=== PATIENT | male | born 1955 | race Caucasian/White ===

== ENCOUNTER → 2020-05-03 10:41 | Outpatient (BNVA) | payer MEDICARE, MEDICAID, SELFPAY | PROVIDERS: Visit Provider Internal Medicine Gastroenterology | DX: R68.81 Early satiety (principal); R10.12 Left upper quadrant pain | CPT/HCPCS: 99212 ==

== ENCOUNTER → 2020-06-02 07:29 | Outpatient (REF) | payer MEDICARE, MEDICAID, SELFPAY ==
--- NOTE | 2020-06-02 | NM_ITS ---
EXAMINATION: RADIONUCLIDE SOLID FOOD GASTRIC EMPTYING 4-HOUR STUDY CLINICAL INFORMATION: Early satiety. COMPARISON: No previous gastric emptying study is available for comparison. TECHNIQUE: A standard meal consisting of 4 oz of Egg Beaters brand tagged with 980 microcuries Tc-99m Sulfur Colloid, 8 oz water and 2 slices of toast with jelly was administered orally to the patient. Images were obtained using a dual head gamma camera in the anterior and posterior projections over of the stomach immediately post ingestion and at hourly intervals up to 3 hours post ingestion. Images were not obtained at 4 hours due to the minimal retention at 3 hours. The anterior and posterior counts at each time interval were averaged using the geometric mean and expressed as percentage of the immediate post ingestion counts. FINDINGS: There is good visualization of activity in the stomach immediately post ingestion. As the study progresses, there is good clearance of activity from the stomach and visualization of progressively increasing small bowel activity. By the end of the study, there is almost no retention noted in the stomach. Retention in the stomach at each time interval was: 1 hour 62% (normal 37%-90%) 2 hours 8% (normal 30%-60%) 3 hours 1% 4 hours (Not Obtained) (normal 0%-10%) NM/NM gastric emptying study IMPRESSION: Normal solid food gastric emptying study.
== END ==
LOC: HO.NUCMED 07:29
PROVIDERS: Visit Provider Internal Medicine Gastroenterology
DX: R68.81 Early satiety (principal)
CPT/HCPCS: 78264; A9541

== ENCOUNTER → 2020-09-06 09:52 | Outpatient (BNVA) | payer MEDICARE, MEDICAID, SELFPAY | PROVIDERS: Visit Provider Internal Medicine Gastroenterology | DX: R68.81 Early satiety (principal) | CPT/HCPCS: Q3014 ==

== ENCOUNTER → 2021-11-17 09:24 | Outpatient (BNVA) | payer MEDICARE, MEDICAID, SELFPAY | PROVIDERS: Visit Provider Internal Medicine Gastroenterology | DX: K31.A11 Gastric intestinal metaplasia without dysplasia, involving the antrum (principal) | CPT/HCPCS: 99212 ==

== ENCOUNTER 2022-01-08 08:16 | Outpatient (REF) | payer MEDICARE, MEDICAID, SELFPAY ==
[2022-01-09 14:13] LABS: H Pylori Breath Test Negative (Negative)
== END 2022-01-08 08:17 | disposition home or self-care (01) ==
LOC: HO.LNP 08:16
PROVIDERS: Visit Provider Internal Medicine Gastroenterology
DX: A04.8 Other specified bacterial intestinal infections (principal)
CPT/HCPCS: 83013; 99211

== ENCOUNTER → 2023-01-04 11:36 | Outpatient (BNVA) | payer MEDICARE, MEDICAID, SELFPAY | PROVIDERS: Visit Provider Internal Medicine Gastroenterology | DX: K31.A11 Gastric intestinal metaplasia without dysplasia, involving the antrum (principal); K63.5 Polyp of colon | CPT/HCPCS: 99212 ==

== ENCOUNTER 2023-06-05 10:44 | Day surgery (SDC) | payer MEDICARE, SELFPAY ==
[2023-06-03 16:00] VITALS: BMI 27.1
--- NOTE | 2023-06-04 12:16 | HO.ANESPROP2 ---
Documented by User: Jennifer Thomas NP 06/04/23 12:17 HPI - Anesthesia Eval Consult details Narrative: 67yo M for Upper Endoscopy and Colonoscopy [facility] Active Problems Active Problems: All Active Problems (Updated 06/03/23 @ 16:02 by Kimberly Lopez, URIEL) Colon polyps (Acute) Intestinal metaplasia of antrum of stomach without dysplasia (Acute) Early satiety (Acute) Past Medical History Medical History Elevated cholesterol Family History Family History Father No problems noted. Mother No problems noted. Surgical History Surgical History Hx of endoscopy History of colonoscopy Social History Social History Household Members: Spouse Alcohol intake: current Alcohol intake frequency: 0-2 drinks per day Alcohol type: wine Advance Directives: No Advance Directives Information Provided: Yes Meds Allergies Allergy/AdvReac Type Severity Reaction Status Date / Time No Known Allergies Allergy Verified 06/05/23 11:37 Home Medications Medication Instructions Recorded Confirmed Last Taken Type cholecalciferol (vitamin D3) 25 25 mcg PO DAILY 11/17/21 06/05/23 Unknown History mcg (1,000 unit) capsule ripzvegwlost-ire-rqaqz acid-vit 1 tab PO DAILY 11/17/21 06/05/23 Unknown History K-lycop 400 mcg-20 mcg-370 mcg tablet (Men's 50 Plus Multivitamin) rosuvastatin 5 mg tablet 5 mg PO DAILY 11/17/21 06/05/23 Unknown History Exam Height,Weight and Vital Signs: Height 5 ft 6 in Weight 76.204 kg Assessment and Plan Assessment Anesthesia Assessment: Chart Reviewed Documented by User: Kristen Sneed MD 06/05/23 12:21 PMFSH Active Problems Active Problems: All Active Problems (Updated 06/04/23 @ 11:50 by Kristen Sneed MD) Colon polyps (Acute) Intestinal metaplasia of antrum of stomach without dysplasia (Acute) Early satiety (Acute) Past Medical History Medical History Elevated cholesterol Family History Family History Father No problems noted. Mother No problems noted. Family history of problems with anesthesia: No Surgical History Surgical History Hx of endoscopy History of colonoscopy History of Problems with Anesthesia: No Social History Social History Household Members: Spouse Alcohol intake: current Alcohol intake frequency: 0-2 drinks per day Alcohol type: wine Advance Directives: No Advance Directives Information Provided: Yes Meds Allergies Allergy/AdvReac Type Severity Reaction Status Date / Time No Known Allergies Allergy Verified 06/05/23 11:37 Home Medications Medication Instructions Recorded Confirmed Last Taken Type cholecalciferol (vitamin D3) 25 25 mcg PO DAILY 11/17/21 06/05/23 Unknown History mcg (1,000 unit) capsule pjjcpauowpmx-tfc-eflrl acid-vit 1 tab PO DAILY 11/17/21 06/05/23 Unknown History K-lycop 400 mcg-20 mcg-370 mcg tablet (Men's 50 Plus Multivitamin) rosuvastatin 5 mg tablet 5 mg PO DAILY 11/17/21 06/05/23 Unknown History Exam Height,Weight and Vital Signs: Height 5 ft 6 in Weight 76.204 kg Vital Signs Temp Pulse Resp BP Pulse Ox O2 Del Method 06/05/23 11:52 98.4 F 49 L 15 133/75 98 Room Air Airway Mallampati Class: II TM Dist: >3cm Neck ROM: Full Loose/Missing/Broken Teeth: Yes (Missing 1 tooth top Right back. Denies broken or loose teeth) Heart: RRR Lungs: CTAB Assessment and Plan Assessment Anesthesia Assessment: Anesthesia Plan Discussed Final Anesthetic Review Family History of Problems with Anesthesia: No History of Problems with Anesthesia: No NPO: Yes ASA Class: II Final Preanesthetic Review: No Changes in Pt Med Stat, Meds/Allgs Chart Reviewed, Consent Obtained/Reviewed and Anes Risks/Benef Reviewed Patient Risk: Low Procedure Risk: Low Assessment/Block/Sedation in SS: Assess/Block/Sedation-SS Anesthetic Plan Anesthetic Plan: MAC: Disposition: Standard PACU
--- OUTSIDE RECORDS SUMMARY | 2023-06-05 10:47 | XMS_ITS | Continuity of Care Document ---
Author Name Unknown Organization [facility] Adult Address [address] [place] [address]- Care Team Providers Care Sand System Operator Name Role Phone Chris Ballard MD Primary Care Physician [phone] Encounter [facility] [place] Date(s): 07/07/20 - 08/06/20 [facility] Adult [address] [place] [address]- Allergies, Adverse Reactions, Alerts Substance Reaction Severity Status NKA Active Immunizations Given and Recorded Vaccine Date Status Refusal Reason zoster vaccine, inactivated 09/30/17 Given tetanus/diphtheria/pertussis, acel(Tdap) 09/20/16 Given influenza virus vaccine, inactivated 09/15/15 Give n influenza virus vaccine, inactivated 05/31/14 Give n tetanus-diphtheria toxoids (Td) 1 08/09/06 Given 1Admin Note: [facility] Medications fluticasone 50 mcg/inh nasal spray 2 sprays, Nares, Both, Daily in AM, # 16 Gm, 3 Refills, Maintenance, 09/25/19 13:05:00 EDT, [place], [facility] #[id number], 2 sprays Nares, Both Daily in AM,x10 days, 168, cm, 10/20/18 11:25:00 EDT, Height Start Date: 09/25/19 Stop Date: 11/04/19 Status: Ordered gabapentin 300 mg oral capsule 1, capsule, By Mouth, 3 times a day, # 270 capsule, Refills 3, Tot. Refills 3, Maintenance, 02/05/20 15:13:00 EDT, Route to Pharmacy Electronically, [facility]/pharmacy #[id number], 168, cm, 11/18/19 8:50:00 EDT,Height Start Date: 02/05/20 Stop Date: 01/30/21 Status: Ordered Multivitamin Tablet 1 tablet, By Mouth, Daily, # 30 tablet, 0 Refills, Maintenance, 09/13/14 7:57:07, Tablet Start Date: 09/13/14 Status: Ordered omeprazole 20 mg oral delayed release tablet 1 tablet = 20 mg, By Mouth, Daily, # 90 tablet, 0 Refills, Maintenance, 07/07/20 14:23:00 EST, [id number], 168, cm, 11/18/19 8:50:00 EDT, Height Start Date: 07/07/20 Status: Ordered rosuvastatin 5 mg oral tablet 1 tablet = 5 mg, By Mouth, Daily, # 90 tablet, 4 Refills, Soft Stop, 11/05/19 11:16:00 EDT, [id number], 168, cm, 11/04/19 10:20:00 EDT, Height Start Date: 11/05/19 Status: Ordered traMADol 50 mg oral tablet 1 tablet = 50 mg, By Mouth, Daily, # 30 tablet, 5 Refills, Maintenance, 06/03/20 11:37:00 EST, Tablet, [id number], 168, cm, 11/18/19 8:50:00 EDT, Height Start Date: 06/03/20 Stop Date: 11/30/20 Status: Ordered Vitamin C Tablet 1 tablet, By Mouth, Daily, # 30 tablet, 0 Refills, Maintenance, 09/13/14 7:57:22, Tablet Start Date: 09/13/14 Status: Ordered Problem List Condition Effective Dates Status Health Status Inform ant Anal fissure(Confirmed) Active Chronic low back pain(Confirmed) Active Esophageal reflux (GERD)(Confirmed) Active 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
--- OUTSIDE RECORDS SUMMARY | 2023-06-05 10:47 | XMS_ITS | Continuity of Care Document ---
Author Name Unknown Organization [facility] Adult Address [address] [place] [address]- Care Team Providers Care Sat Tutor Name Role Phone Chris Ballard MD Primary Care Physician [place] [facility] [place]14/20 [facility] [address] [place] [address]- Encounter Diagnosis Medicare annual wellness visit, subsequent(Discharge Diagnosis) - 11/07/20 Attending Physician: Chris Ballard MD Allergies, Adverse Reactions, Alerts Substance Reaction Severity Status NKA Active Immunizations Given and Recorded Vaccine Date Status Refusal Reason zoster vaccine, inactivated 12/28/17 Recorded zoster vaccine, inactivated 09/30/17 Given tetanus/diphtheria/pertussis, acel(Tdap) 09/20/16 Given influenza virus vaccine, inactivated 09/15/15 Give n influenza virus vaccine, inactivated 05/31/14 Give n tetanus-diphtheria toxoids (Td) 1 08/09/06 Given 1Admin Note: [facility] Medications fluticasone 50 mcg/inh nasal spray 2 sprays, Nares, Both, Daily in AM, # 16 Gm, 3 Refills, Maintenance, 09/25/19 13:05:00 EDT, [place], [facility] #[id number], 2 sprays Nares, Both Daily in AM,x10 days, 168, cm, 10/20/18 11:25:00 EDT, Height Start Date: 09/25/19 Stop Date: 11/04/19 Status: Ordered Multivitamin Tablet 1 tablet, By Mouth, Daily, # 30 tablet, 0 Refills, Maintenance, 09/13/14 7:57:07, Tablet Start Date: 09/13/14 Status: Ordered omeprazole 20 mg oral delayed release tablet 1 tablet = 20 mg, By Mouth, Daily, # 90 tablet, 0 Refills, Maintenance, 08/11/20 10:09:00 [facility], [facility] #[id number], 168, cm, 11/18/19 8:50:00 EDT, Height Start Date: 08/11/20 Status: Ordered rosuvastatin 5 mg oral tablet 1 tablet = 5 mg, By Mouth, Daily, # 90 tablet, 1 Refills, Soft Stop, 11/05/20 9:01:00 EDT, [facility]/pharmacy #[id number], 168, cm, 11/18/19 8:50:00 EDT, Height Start Date: 11/05/20 Status: Ordered Tylenol Arthritis Caplet = 1,300 mg, By Mouth, Every 8 hours, 0 Refills, Maintenance, 11/07/20 8:16:00 EDT, Partial fill upon patient request if the prescription is for a schedule II opioid drug. 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 Hyperlipidemia(Confirmed) Active Rosacea(Confirmed) Active Diagnosis Diagnosis Type Effective Dates Health Status Clinical Service Informant Medicare annual wellness visit, subsequent Discharge Diagnosis 11/07/20 Vital Signs Most recent to oldest [Reference Range]: 1 Height 168.5 cm (11/07/20 8:13 AM) Weight 71.7 kg (11/07/20 8:13 AM) Oxygen Saturation [94-100 %] 98 % (11/07/20 8:13 AM) Pulse Rate [55-90 bpm] 50 bpm *L* (11/07/20 8:13 AM) Body Mass Index [18.5-24.99] 25.25 *H* (11/07/20 8:13 AM) Blood Pressure [90-138/55-84 mm Hg] 122/ 68mm Hg (11/07/20 8:13 AM) Blood pressure sites Arm, right (11/07/20 8:13 AM) Weight Obtained Via Standing scale (11/07/20 8:13 AM) Social History Social History Type Response Smoking Status Former smoker; Type: Cigarettes; Other: Quit at age 22; entered on: 09/15/15 Sex
--- OUTSIDE RECORDS SUMMARY | 2023-06-05 10:47 | XMS_ITS | Continuity of Care Document ---
Author Name Unknown Organization [facility] Adult Address [address] [place] [address]- Care Team Providers Care Solvent Process Extractor Operator Name Role Phone Elio NAVARRETE, Chris Smyth Primary Care Physician [phone] Encounter [facility] [place] Date(s): 01/02/23 - 02/01/23 [facility] [address] [place] [address]- Allergies, Adverse Reactions, Alerts No Known Allergies Immunizations Given and Recorded Vaccine Date Status Refusal Reason pneumococcal 20-valent conjugate vaccine 11/16/22 Given influenza virus vaccine, inactivated 05/18/22 Ruy rded influenza virus vaccine, inactivated 09/15/15 Give n influenza virus vaccine, inactivated 05/31/14 Give n [id number] 12y+ bivalent booster vax 05/16/22 Recorded zoster vaccine, inactivated 12/28/17 Recorded zoster vaccine, inactivated 09/30/17 Given tetanus/diphtheria/pertussis, acel(Tdap) 09/20/16 Given tetanus-diphtheria toxoids (Td) 1 08/09/06 Given 1Admin Note: [facility] Medications Multivitamin Tablet 1 tablet, By Mouth, Daily, # 30 tablet, 0 Refills, Maintenance, 09/13/14 7:57:07, Tablet Start Date: 09/13/14 Status: Ordered rosuvastatin 5 mg oral tablet 1 tablet = 5 mg, By Mouth, Daily, # 90 tablet, 3 Refills, Soft Stop, 01/07/23 9:27:00 EDT, [facility] #[id number], 168.5, cm, 11/16/22 9:45:00 EDT, Height Start Date: 01/07/23 Status: Ordered Vitamin D3 1000 intl units oral capsule 1 capsule = 25 mcg, By Mouth, Daily, 0 Refills, Maintenance, 11/10/21 8:11:00 EDT, Partial fill upon patient request if the prescription is for a schedule II opioid drug. Start Date: 11/10/21 Status: Ordered Problem List Condition Confirmation Course Effective Dates Status H ealth Status Informant Anal fissure Confirmed Active Chronic low back pain Confirmed Active Esophageal reflux (GERD) Confirmed Active IFG (impaired fasting glucose) Confirmed Active Degenerative joint disease (DJD) of lumbar spine Confirmed Active Hyperlipidemia Confirmed Active Rosacea Confirmed Active Social History Social History Type Response Smoking Status Former smoker, quit more than 30 days ago; Tobacco use times per day: 1 pack every 3-5 days; Started at age: 18; Stopped at age: 22; entered on: 11/16/22 Sex Patient Care team information Care Team Personnel Name: Chris Ballard MD Position: S Physician - Primary Care Member Role: PCP Address: Address: [address] [place] [address]- Care Team Related Persons Name: HUGO VARGAS Address: [address] [place] [address] Name: GIANFRANCO BOWSER Address: home [address] [place] [address]
--- OUTSIDE RECORDS SUMMARY | 2023-06-05 10:47 | XMS_ITS | Continuity of Care Document ---
Author Name Unknown Organization [facility] Adult Address [address] [place] [address]- Care Team Providers Care Sample Case Porter Name Role Phone Chris Ballard MD Primary Care Physician [phone] [place] [facility] [place] 11/23/22 [facility] [address] [place] [address]- Encounter Diagnosis General medical exam(Discharge Diagnosis) - 11/16/22 Medicare annual wellness visit, subsequent(Discharge Diagnosis) - 11/16/22 IFG (impaired fasting glucose)(Discharge Diagnosis) - 11/16/22 Hyperlipidemia(Discharge Diagnosis) - 11/16/22 Chronic low back pain(Discharge Diagnosis) - 11/16/22 Attending Physician: Chris Ballard MD Allergies, Adverse Reactions, Alerts No Known Allergies Immunizations Given and Recorded Vaccine Date Status Refusal Reason pneumococcal 20-valent conjugate vaccine 11/16/22 Given influenza virus vaccine, inactivated 05/18/22 Ruy rded influenza virus vaccine, inactivated 09/15/15 Give n influenza virus vaccine, inactivated 05/31/14 Give n [id number] 12y+ bivalent booster vax 05/16/22 Recorded zoster vaccine, inactivated 12/28/17 Recorded zoster vaccine, inactivated 09/30/17 Given tetanus/diphtheria/pertussis, acel(Tdap) 09/20/16 Given tetanus-diphtheria toxoids (Td) 1 08/09/06 Given 1Admin Note: [facility] Multivitamin Tablet 1 tablet, By Mouth, Daily, # 30 tablet, 0 Refills, Maintenance, 09/13/14 7:57:07, Tablet Start Date: 09/13/14 Status: Ordered rosuvastatin 5 mg oral tablet 1 tablet = 5 mg, By Mouth, Daily, # 90 tablet, 1 Refills, Soft Stop, 01/26/22 13:32:00 EDT, [facility] #[id number], 168.5, cm, 11/10/21 7:54:00 EDT, Height Start Date: 01/26/22 Status: Ordered Vitamin D3 1000 intl units [...] Active Hyperlipidemia Confirmed Active Rosacea Confirmed Active Diagnosis Diagnosis Type Effective Dates Health Status Clinical Service Informant General medical exam Discharge Diagnosis 11/16/22 Hyperlipidemia Discharge Diagnosis 11/16/22 IFG (impaired fasting glucose) Discharge Diagnosis 11/16/22 Medicare annual wellness visit, subsequent Discharge Diagnosis 11/16/22 Chronic low back pain Discharge Diagnosis 11/16/22 Vital Signs Most recent to oldest [Reference Range]: 1 2 3 Height 168.5 cm (11/16/22 9:45 AM) 168.5 cm (11/16/22 9:24 AM) 168.5 cm (11/16/22 8:29 AM) Weight 73.1 kg (11/16/22 8:29 AM) Oxygen Saturation [94-100 %] 99 % (11/16/22 8:29 AM) Pulse Rate [55-90 bpm] 45 bpm *L* (11/16/22 8:29 AM) Body Mass Index [18.5-24.99 kg/m2] 25.75 kg/m2 *H* (11/16/22 8:29 AM) Blood Pressure [90-138/55-84 mm Hg] 134/77mm Hg (11/16/22 9:45 AM) 134/77mm Hg 1 (11/16/22 9:24 AM) 142/78mm Hg *H* (11/16/22 8:29 AM) Blood pressure sites Arm, left (11/16/22 9:45 AM) Arm, left (11/16/22 8:29 AM) 1Result Comment: Repeat BP in office after exam Social History Social History Type Response Smoking Status Former smoker, quit more than 30 days ago; Tobacco use times per day: 1 pack every 3-5 days; Started at age: 18; Stopped at age: 22; entered on: 11/16/22 Sex Note * Esha Pritchett [place]: PERFORM, SIGN, VERIFY Event Display: Patient Education/Instruction Authored Date: [id number] [facility] *[facility] Clinical Summary Name NAVDEEP BOWSER Age 67 Years 1955 PCP Elio NAVARRETE, Chris Smyth PCP Visit Date 11/16/2022 08:15:00 Patient Instructions Please go to lab today for blood work; Dr. Ballard will contact you with results Continue with your good diet and try to be as active as possible You will be contacted to schedule your colonoscopy since you are due You will be contacted about scheduling that aortic abdominal screening since you used to smoke in the past (this is routine) You had the Prevnar 20 vaccine today (for pneumonia) Physical in 1 year Additional Instructions: Scheduled Appointments?? Future Appointments ?No Future Appointments Scheduled Follow-Up Instructions ?? Diagnosis Encounter for general adult medical examination without abnormal findings; Impaired fasting glucose; Low back pain, unspecified; Encounter for general adult medical examination without abnormal findings; Hyperlipidemia, unspecified Medications: Please continue your medications until treatment is completed or stopped by your provider. Discuss any questions related to medications with your provider. Medications to Continue with No Changes These medications were not printed or sent to your pharmacy Cholecalciferol (Vitamin D3 1000 intl units oral capsule) 1 capsule Oral Daily. Next Dose: Multivitamin (Multivitamin Tablet) 1 tab(s) Oral Daily. Next Dose: Rosuvastatin (rosuvastatin 5 mg oral tablet) 1 tab(s) Oral Daily. Refills: 1. Next Dose: Allergy Info:?? NKA Medications Given This Visit Future Orders ?Lipid Panel? Order Date:11/16/22?- Complete on or after?11/16/22 ?PSA Screen? Order Date:11/16/22?- Complete on or after?11/16/22 Vital Signs Height 168.5 cm Weight 73.1 kg BMI 25.75 kg/m2 Blood Pressure 142 mm Hg/78 mm Hg Temperature Pulse Rate 45 bpm Respiratory Rate 02 Sat Mode of Delivery 99 %/ You can now view a summary of your hospital visit from the comfort of your home through a free online portal called [employer]. [employer] is a website that allows you to securely view your medical information including discharge summary, medications and follow-up visits. ??You can alsosend a secure electronic message to your doctor???s office to request appointments, renew medications or just ask a question. You can enroll at [email or web address] or register during your next office visit. Disclaimer:?? The information provided is of a general nature and is intended to be used in conjunction with the recommendations and advice of your health care practitioner. ??Every effort has been made to ensure that the information provided is accurate and complete at the time it is provided to you however, as your needs change, or, as new ??information becomes available, different or additional instructions may be required. If you have questions, please consult with your primary care provider or pharmacist, as appropriate. ??This information is not intended to serve as substitution for assessment and evaluation by a qualified health care provider. If you do not have a primary care provider, you may find a [facility] provider by calling [facility] Link at [phone]. For information about the plan of care including goals and instructions for your diagnosis, please see the patient education orders section of this document. Patient Education Materials?? The content of this educational material or handout may have been modified, supplemented, or adapted from its original content and format to support your individualized medical care. Patient Care team information Care Team Personnel Name: Elio NAVARRETE, Chris Smyth Position: S Physician - Primary Care Member Role: PCP Address: Address: [address] [place] [address]- Care Team Related Persons Name: HUGO VARGAS Address: home [address] [place] [address] Name: GIANFRANCO BOWSER Address: home [address] [place] [address]
--- OUTSIDE RECORDS SUMMARY | 2023-06-05 10:47 | XMS_ITS | Continuity of Care Document ---
Author Name Unknown Organization [facility] Adult Address [address] [place] [address]- Care Team Providers Care Hydropress Operator Name Role Phone Chris Ballard MD Primary Care Physician [phone] Encounter [facility] [place] Date(s): 11/18/19 - 12/18/19 [facility] [address] [place] [address]- [facility] Attending Physician: Admtr, Lorenzo Admitting Physician: AdmtrLorenzo Referring Physician: Admtr, Ar8 Allergies, Adverse Reactions, Alerts Substance Reaction Severity [...] Gm, 3 Refills, Maintenance, 09/25/19 13:05:00 EDT, [place], [facility] #[id number], 2 sprays Nares, Both Daily in AM,x10 days, 168, cm, 10/20/18 11:25:00 EDT, Height Start Date: 09/25/19 Stop Date: 11/04/19 Status: Ordered gabapentin 300 mg oral capsule 1, capsule, By Mouth, 3 times a day, # 90 capsule, Refills 11, Tot. Refills 11, Maintenance, 11/26/19 13:15:00 EDT, Route to Pharmacy Electronically, [facility]/pharmacy #[id number], 168, cm, 05/20/20 8:50:00 EDT, Height Start Date: 11/26/19 Stop Date: 11/20/20 Status: Ordered Multivitamin Tablet 1 tablet, By Mouth, Daily, # 30 tablet, 0 Refills, Maintenance, 09/13/14 7:57:07, Tablet Start Date: 09/13/14 Status: Ordered omeprazole 20 mg oral delayed release tablet 1 tablet = 20 mg, By Mouth, Daily, # 90 tablet, 4 Refills, Maintenance, 11/04/19 10:35:00 EDT, [facility] #[id number], 168, cm, 11/04/19 10:20:00 EDT, Height Start Date: 11/04/19 Stop Date: 05/02/20 Status: Ordered rosuvastatin 5 mg oral tablet 1 tablet = 5 mg, By Mouth, Daily, # 90 tablet, 4 Refills, Soft Stop, 11/05/19 11:16:00 EDT, [facility]/pharmacy #[id number], 168, cm, 11/04/19 10:20:00 EDT, Height Start Date: 11/05/19 Status: Ordered traMADol 50 mg oral tablet 1 tablet = 50 mg, By Mouth, Daily, # 30 tablet, 5 Refills, Maintenance, 11/26/19 13:27:00 EDT, Tablet, [facility]/pharmacy #[id number], 168, cm, 11/18/19 8:50:00 EDT, Height Start Date: 11/26/19 Stop Date: 05/24/20 Status: Ordered Vitamin C Tablet 1 tablet, [...]
--- OUTSIDE RECORDS SUMMARY | 2023-06-05 10:47 | XMS_ITS | Continuity of Care Document ---
Author Name Unknown Organization [facility] Adult Address [address] [place] [address]- Care Team Providers Care Hand I Cutter Name Role Phone Chris Ballard MD Primary Care Physician [place] [facility] [place]/15/20 - 07/15/20 [facility] Adult [address] [place] [address]- Allergies, Adverse Reactions, Alerts Substance Reaction Severity [...] Gm, 3 Refills, Maintenance, 09/25/19 13:05:00 EDT, [place], [facility] #[id number], 2 sprays Nares, Both Daily in AM,x10 days, 168, cm, 10/20/18 11:25:00 EDT, Height Start Date: 09/25/19 Stop Date: 11/04/19 Status: Ordered gabapentin 300 mg oral capsule 1, capsule, By Mouth, 3 times a day, # 270 capsule, Refills 3, Tot. Refills 3, Maintenance, 02/05/20 15:13:00 EDT, Route to Pharmacy Electronically, [facility]/pharmacy #[id number], 168, cm, 11/18/19 8:50:00 [...]
--- OUTSIDE RECORDS SUMMARY | 2023-06-05 10:47 | XMS_ITS | Continuity of Care Document ---
Author Name Unknown Organization [facility] Adult Address [address] [place] [address]- Care Team Providers Care Mercury Washer Name Role Phone Chris Ballard MD Primary Care Physician [phone] Encounter [facility] [place] Date(s): 11/16/22 - 12/16/22 [facility] Adult [address] [place] [address]- Allergies, Adverse Reactions, Alerts No Known Allergies Immunizations Given and Recorded Vaccine Date Status Refusal Reason pneumococcal 20-valent conjugate vaccine 11/16/22 Given influenza virus vaccine, inactivated 05/18/22 Ruy rded influenza virus vaccine, inactivated 09/15/15 Give n influenza virus vaccine, inactivated 05/31/14 Give n [id number] 12y+ bivalent booster vax 05/16/22 Recorded zoster [...] 1 Refills, Soft Stop, 01/26/22 13:32:00 EDT, [facility] #[id number], 168.5, cm, 11/10/21 7:54:00 EDT, Height Start [...] Team Personnel Name: Chris Ballard MD Position: [facility] Physician - Primary Care Member Role: PCP Address: Address: [address] [place] [address]- Care Team Related Persons Name: HUGO VARGAS Address: home [address] [place] [address] Name: GIANFRANCO BOWSER Address: home [address] [place] [address]
--- OUTSIDE RECORDS SUMMARY | 2023-06-05 10:47 | XMS_ITS | Continuity of Care Document ---
Author Name Unknown Organization [facility] Adult Address [address] [place] [address]- Care Team Providers Care Motorized Squad Commanding Officer Name Role Phone Chris Ballard MD Primary Care Physician [phone] [id number] Date(s): 09/18/19 - 09/28/19 [facility] Adult [address] [place] [address]- [facility] Attending Physician: Admniurka, Lorenzo Admitting Physician: AdmtrLorenzo Referring Physician: Admtr, [...] Gm, 3 Refills, Maintenance, 09/25/19 13:05:00 EDT, [place], [facility] #[id number], 2 sprays Nares, Both Daily in AM,x10 days, 168, cm, 10/20/18 11:25:00 EDT, Height Start Date: 09/25/19 Stop Date: 11/04/19 Status: Ordered gabapentin 300 mg oral capsule 1, capsule, By Mouth, 2 times a day, # 60 capsule, Refills 12, Tot. Refills 0, Maintenance, 08/26/19 16:41:00 EST, Route to Pharmacy Electronically, [facility] #[id number], 168, cm, 10/20/18 11:25:00 EDT, Height Start Date: 08/26/19 Status: Ordered Multivitamin Tablet 1 tablet, By Mouth, Daily, # 30 tablet, 0 Refills, Maintenance, 09/13/14 7:57:07, Tablet Start Date: 09/13/14 Status: Ordered omeprazole 20 mg oral delayed release tablet 1 tablet = 20 mg, By Mouth, Daily, # 30 tablet, 5 Refills, Maintenance, 08/26/19 14:41:00 EST, [facility] #[id number], 168, cm, 10/20/18 11:25:00 EDT, Height Start Date: 08/26/19 Stop Date: 02/22/20 Status: Ordered rosuvastatin 5 mg oral tablet See Instructions, # 30 tablet, Refills 5 Tot. Refills 5, TAKE 1 TABLET BY MOUTH DAILY AT BEDTIME, [facility] #[id number] Start Date: 04/07/19 Status: Ordered traMADol 50 mg oral tablet 1 tablet = 50 mg, By Mouth, 2 times a day, for 30 days, fax [phone] fill on or after 08/08/18, #60 tablet, 5 Refills, Acute 03/07/20 11:13:00 EDT, 09/09/19 11:13:00 EDT, [facility] #[id number], 168, cm, 10/20/18 11:25:00 EDT, Height Start Date: 09/09/19 Stop Date: 03/07/20 Status: Ordered Vitamin C Tablet 1 tablet, By Mouth, Daily, # 30 tablet, 0 Refills, Maintenance, 09/13/14 7:57:22, Tablet Start Date: 09/13/14 Status: Ordered Problem List Condition Effective Dates Status Health Status Inform ant Anal fissure(Confirmed) Active Chronic low back pain(Confirmed) Active Esophageal reflux (GERD)(Confirmed) Active 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
--- OUTSIDE RECORDS SUMMARY | 2023-06-05 10:47 | XMS_ITS | Continuity of Care Document ---
Author Name Unknown Organization [facility] Adult Address [address] [place] [address]- Care Team Providers Care Head Of It Name Role Phone Chris Ballard MD Primary Care Physician [id number] Date(s): 08/05/19 - 12/03/19 [facility] Adult [address] [place] [address]- [facility] Attending Physician: Chris Ballard MD Allergies, Adverse [...] Gm, 3 Refills, Maintenance, 09/25/19 13:05:00 EDT, [place], [facility] #[id number], 2 sprays Nares, Both Daily in AM,x10 days, 168, cm, 10/20/18 11:25:00 EDT, Height Start Date: 09/25/19 Stop Date: 11/04/19 Status: Ordered gabapentin 300 mg oral capsule 1, capsule, By Mouth, 3 times a day, # 90 capsule, Refills 11, Tot. Refills 11, Maintenance, 11/26/19 13:15:00 EDT, Route to Pharmacy Electronically, [facility]/pharmacy #[id number], 168, cm, 11/18/19 8:50:00 EDT, Height Start Date: 11/26/19 Stop Date: 11/20/20 Status: Ordered Multivitamin Tablet 1 tablet, By Mouth, Daily, # 30 tablet, 0 Refills, Maintenance, 09/13/14 7:57:07, Tablet Start Date: 09/13/14 Status: Ordered omeprazole 20 mg oral delayed release tablet 1 tablet = 20 mg, By Mouth, Daily, # 90 tablet, 4 Refills, Maintenance, 11/04/19 10:35:00 EDT, [facility] #[id number], 168, cm, 11/04/19 10:20:00 EDT, Height Start Date: 11/04/19 Stop Date: 05/02/20 Status: Ordered rosuvastatin 5 mg oral tablet 1 tablet = 5 mg, By Mouth, Daily, # 90 tablet, 4 Refills, Soft Stop, 11/05/19 11:16:00 EDT, [facility]/pharmacy #[id number], 168, cm, 11/04/19 10:20:00 EDT, Height Start Date: 11/05/19 Status: Ordered traMADol 50 mg oral tablet 1 tablet = 50 mg, By Mouth, Daily, # 30 tablet, 5 Refills, Maintenance, 11/26/19 13:27:00 EDT, Tablet, [facility]/pharmacy #[id number], 168, cm, 11/18/19 8:50:00 EDT, Height [...]
--- OUTSIDE RECORDS SUMMARY | 2023-06-05 10:47 | XMS_ITS | Continuity of Care Document ---
Author Name Unknown Organization [facility] Adult Address [address] [place] [address]- Care Team Providers Care Plug Cutter Name Role Phone Chris Ballard MD Primary Care Physician Encounter [facility] [place] Date(s): 11/07/20 - 12/07/20 [facility] Adult [address] [place] [address]- Allergies, Adverse Reactions, Alerts Substance Reaction Severity [...] Gm, 3 Refills, Maintenance, 09/25/19 13:05:00 EDT, [place], [facility] #[id number], 2 sprays Nares, Both Daily in AM,x10 [...] 90 tablet, 0 Refills, Maintenance, 08/11/20 10:09:00 EST, [facility] #[id number], 168, cm, 11/18/19 8:50:00 EDT, Height Start Date: 08/11/20 Status: Ordered rosuvastatin 5 mg oral tablet 1 tablet = 5 mg, By Mouth, Daily, # 90 tablet, 1 Refills, Soft Stop, 11/05/20 9:01:00 EDT, [facility]/pharmacy #[id number], 168, cm, 11/18/19 8:50:00 EDT, Height [...] lumbar spine(Confirmed) Active Hyperlipidemia(Confirmed) Active Rosacea(Confirmed) Active Social History Social History Type Response Smoking Status Former smoker; Type: Cigarettes; Other: Quit at age 22; entered on: 09/15/15 Sex
--- OUTSIDE RECORDS SUMMARY | 2023-06-05 10:47 | XMS_ITS | Continuity of Care Document ---
Author Name Unknown Organization [facility] Adult Address [address] [place] [address]- Care Team Providers Care District Court Administrator Name Role Phone Chrsi Ballard MD Primary Care Physician [place] [facility] [place] 11/17/22 - 12/17/22 [facility] Adult [address] [place] [address]- Allergies, Adverse Reactions, Alerts No Known Allergies Immunizations Given and Recorded Vaccine Date Status Refusal Reason pneumococcal 20-valent conjugate vaccine 11/16/22 Given influenza virus vaccine, inactivated 05/18/22 Ruy rded influenza virus vaccine, inactivated 09/15/15 Give n influenza virus vaccine, inactivated 05/31/14 Give n [id number] 12y+ bivalent booster vax 05/16/22 Recorded zoster [...] 1 Refills, Soft Stop, 01/26/22 13:32:00 EDT, [facility] #[id number], 168.5, cm, 11/10/21 7:54:00 EDT, Height Start [...] Team Personnel Name: Chris Ballard MD Position: [facility] Physician - Primary Care Member Role: PCP Address: Address: [address] [place] [address]- Care Team Related Persons Name: HUGO VARGAS Address: home [address] [place] [address] Name: GIANFRANCO BOWSER Address: home [address] [place] [address]
--- OUTSIDE RECORDS SUMMARY | 2023-06-05 10:47 | XMS_ITS | Continuity of Care Document ---
Author Name Unknown Organization [facility] Adult Address Unknown Care Team Providers Care Hand Crocheter Name Role Phone Elio NAVARRETE, Chris Smyth Primary Care Physician Encounter [facility] [place] Date(s): 11/11/21 - 12/11/21 [facility] Adult Allergies, Adverse Reactions, Alerts No Known Allergies [...] 09/13/14 Status: Ordered omeprazole 20 mg oral enteric coated capsule 1 capsule, By Mouth, Daily, # 90 capsule, 1 Refills, 07/27/21 10:18:00 EST, [facility] #[id number], 168.5, cm, 11/07/20 8:13:00 EDT, Height Start Date: 07/27/21 Status: Ordered rosuvastatin 5 mg oral tablet 1 tablet = 5 mg, By Mouth, Daily, # 90 tablet, 1 Refills, Soft Stop, 11/22/21 8:21:00 EDT, [facility] #[id number], 168.5, cm, 11/10/21 7:54:00 EDT, Height Start Date: 11/22/21 Status: Ordered Vitamin D3 1000 intl units oral capsule 1 capsule = 25 mcg, By Mouth, Daily, 0 Refills, Maintenance, 11/10/21 8:11:00 EDT, Partial fill upon patient request if the prescription is for a schedule II opioid drug. Start Date: 11/10/21 Status: Ordered Problem List Condition Effective Dates [...]
--- OUTSIDE RECORDS SUMMARY | 2023-06-05 10:47 | XMS_ITS | Continuity of Care Document ---
Author Name Unknown Organization [facility] Adult Address [address] [place] [address]- Care Team Providers Care Inclusion Special Education Teacher Name Role Phone Chris Ballard MD Primary Care Physician Encounter [facility] [place] Date(s): 09/18/19 - 09/25/19 [facility] Adult [address] [place] [address]- [facility] Attending Physician: Chris Ballard MD Allergies, Adverse [...] Gm, 3 Refills, Maintenance, 09/25/19 13:05:00 EDT, [place], [facility] #[id number], 2 sprays Nares, Both Daily in AM,x10 days, 168, cm, 10/20/18 11:25:00 EDT, Height Start Date: 09/25/19 Stop Date: 11/04/19 Status: Ordered gabapentin 300 mg oral capsule 1, capsule, By Mouth, 2 times a day, # 60 capsule, Refills 12, Tot. Refills 0, Maintenance, 08/26/19 16:41:00 EST, Route to Pharmacy Electronically, [facility] #[id number], 168, cm, 10/20/18 11:25:00 EDT, Height Start Date: 08/26/19 Status: Ordered Multivitamin Tablet 1 tablet, By Mouth, Daily, # 30 tablet, 0 Refills, Maintenance, 09/13/14 7:57:07, Tablet Start Date: 09/13/14 Status: Ordered omeprazole 20 mg oral delayed release tablet 1 tablet = 20 mg, By Mouth, Daily, # 30 tablet, 5 Refills, Maintenance, 08/26/19 14:41:00 EST, [facility] #[id number], 168, cm, 10/20/18 11:25:00 EDT, Height Start Date: 08/26/19 Stop Date: 02/22/20 Status: Ordered rosuvastatin 5 mg oral tablet See Instructions, # 30 tablet, Refills 5 Tot. Refills 5, TAKE 1 TABLET BY MOUTH DAILY AT BEDTIME, [facility] #[id number] Start Date: 04/07/19 Status: Ordered traMADol 50 mg oral tablet 1 tablet = 50 mg, By Mouth, 2 times a day, for 30 days, fax [phone] fill on or after 08/08/18, #60 tablet, 5 Refills, Acute 03/07/20 11:13:00 EDT, 09/09/19 11:13:00 EDT, [facility] #02529, 168, cm, 10/20/18 11:25:00 EDT, Height Start [...]
--- OUTSIDE RECORDS SUMMARY | 2023-06-05 10:47 | XMS_ITS | Continuity of Care Document ---
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/21 Screening for prostate cancer(Discharge Diagnosis) - 11/10/21 Abnormal glucose(Discharge Diagnosis) - 11/10/21 Lipoma(Discharge Diagnosis) - 11/10/21 Attending Physician: Chris Ballard MD Allergies, Adverse Reactions, Alerts No Known Allergies Immunizations Given and Recorded Vaccine Date Status Refusal Reason zoster vaccine, inactivated 12/28/17 Recorded zoster vaccine, inactivated 09/30/17 Given tetanus/diphtheria/pertussis, acel(Tdap) 09/20/16 Given influenza virus vaccine, inactivated 09/15/15 Give n influenza virus vaccine, inactivated 05/31/14 Give n tetanus-diphtheria toxoids (Td) 1 08/09/06 Given 1Admin Note: [facility] Multivitamin Tablet 1 tablet, By Mouth, Daily, # 30 tablet, 0 Refills, Maintenance, 09/13/14 7:57:07, Tablet Start Date: 09/13/14 Status: Ordered omeprazole 20 mg oral enteric coated capsule 1 capsule, By Mouth, Daily, # 90 capsule, 1 Refills, 07/27/21 10:18:00 EST, [facility] #[id number], 168.5, cm, 11/07/20 8:13:00 EDT, Height Start Date: 07/27/21 Status: Ordered rosuvastatin 5 mg oral tablet 1 tablet = 5 mg, By Mouth, Daily, # 90 tablet, 1 Refills, Soft Stop, 05/30/21 9:09:00 [place], [facility] #[id number], 168.5, cm, 11/07/20 8:13:00 EDT, Height Start Date: 05/30/21 Status: Ordered Vitamin D3 1000 intl units [...] Medicare annual wellness visit, subsequent Discharge Diagnosis 11/10/21 Chronic low back pain Discharge Diagnosis 11/10/21 Hyperlipidemia Discharge Diagnosis 11/10/21 Pseudomonas aeruginosa colonization Discharge Diagnosis 11/10/21 Screening for prostate cancer Discharge Diagnosis 11/10/21 Abnormal glucose Discharge Diagnosis 11/10/21 Lipoma Discharge Diagnosis 11/10/21 Vital Signs Most recent to oldest [Reference Range]: 1 Height 168.5 cm (11/10/21 7:54 AM) Weight 72.8 kg (11/10/21 7:54 AM) Oxygen Saturation [94-100 %] 98 % (11/10/21 7:54 AM) Pulse Rate [55-90 bpm] 57 bpm (11/10/21 7:54 AM) Body Mass Index [18.5-24.99] 25.64 *H* (11/10/21 7:54 AM) Blood Pressure [90-138/55-84 mm Hg] 110/ 70mm Hg (11/10/21 7:54 AM) Blood pressure sites Arm, left (11/10/21 7:54 AM) Social History Social History Type Response Smoking Status Former smoker; Type: Cigarettes; Other: Quit at age 22; entered on: 09/15/15 Sex
--- OUTSIDE RECORDS SUMMARY | 2023-06-05 10:47 | XMS_ITS | Continuity of Care Document ---
Author Name Unknown Organization [facility] Adult Address [address] [place] [address]- Care Team Providers Care Tuber Machine Operator Helper Name Role Phone Chris Ballard MD Primary Care Physician Encounter [facility] [place] Date(s): 08/11/20 - 09/10/20 [facility] Adult [address] [place] [address]- Allergies, Adverse Reactions, Alerts Substance Reaction Severity [...] Gm, 3 Refills, Maintenance, 09/25/19 13:05:00 EDT, [place], [facility] #[id number], 2 sprays Nares, Both Daily in AM,x10 days, 168, cm, 10/20/18 11:25:00 EDT, Height Start Date: 09/25/19 Stop Date: 11/04/19 Status: Ordered gabapentin 300 mg oral capsule 1, capsule, By Mouth, 3 times a day, # 270 capsule, Refills 3, Tot. Refills 3, Maintenance, 02/05/20 15:13:00 EDT, Route to Pharmacy Electronically, [facility]/pharmacy #[id number], 168, cm, 11/18/19 8:50:00 EDT,Height Start Date: 02/05/20 Stop Date: 01/30/21 Status: Ordered Multivitamin Tablet 1 tablet, By Mouth, Daily, # 30 tablet, 0 Refills, Maintenance, 09/13/14 7:57:07, Tablet Start Date: 09/13/14 Status: Ordered omeprazole 20 mg oral delayed release tablet 1 tablet = 20 mg, By Mouth, Daily, # 90 tablet, 0 Refills, Maintenance, 08/11/20 10:09:00 EST, [facility] #[id number], 168, cm, 11/18/19 8:50:00 EDT, Height Start Date: 08/11/20 Status: Ordered rosuvastatin 5 mg oral tablet 1 tablet = 5 mg, By Mouth, Daily, # 90 tablet, 4 Refills, Soft Stop, 11/05/19 11:16:00 EDT, [facility]/pharmacy #[id number], 168, cm, 11/04/19 10:20:00 EDT, Height Start Date: 11/05/19 Status: Ordered traMADol 50 mg oral tablet 1 tablet = 50 mg, By Mouth, Daily, # 30 tablet, 5 Refills, Maintenance, 06/03/20 11:37:00 EST, Tablet, [facility] #[id number], 168, cm, 11/18/19 8:50:00 EDT, Height [...]
--- OUTSIDE RECORDS SUMMARY | 2023-06-05 10:47 | XMS_ITS | Continuity of Care Document ---
Author Name Unknown Organization [facility] Adult Address [address] [place] [address]- Care Team Providers Care Travel Nurse Name Role Phone Chris Ballard MD Primary Care Physician [place] [facility] [place]s): 06/02/20 - 07/02/20 [facility] Adult [address] [place] [address]- Allergies, Adverse Reactions, Alerts Substance Reaction Severity [...] Gm, 3 Refills, Maintenance, 09/25/19 13:05:00 EDT, [place], [email or web address] #[id number], 2 sprays Nares, Both Daily in AM,x10 days, 168, cm, 10/20/18 11:25:00 EDT, Height Start Date: 09/25/19 Stop Date: 11/04/19 Status: Ordered gabapentin 300 mg oral capsule 1, capsule, By Mouth, 3 times a day, # 270 capsule, Refills 3, Tot. Refills 3, Maintenance, 02/05/20 15:13:00 EDT, Route to Pharmacy Electronically, [facility]/pharmacy #[id number], 168, cm, 11/18/19 8:50:00 EDT,Height Start Date: 02/05/20 Stop Date: 01/30/21 Status: Ordered Multivitamin Tablet 1 tablet, By Mouth, Daily, # 30 tablet, 0 Refills, Maintenance, 09/13/14 7:57:07, Tablet Start Date: 09/13/14 Status: Ordered omeprazole 20 mg oral delayed release tablet 1 tablet = 20 mg, By Mouth, Daily, # 90 tablet, 4 Refills, Maintenance, 11/04/19 10:35:00 EDT, [facility] #[id number], 168, cm, 11/04/19 10:20:00 EDT, Height Start Date: 11/04/19 Stop Date: 05/02/20 Status: Ordered rosuvastatin 5 mg oral tablet 1 tablet = 5 mg, By Mouth, Daily, # 90 tablet, 4 Refills, Soft Stop, 11/05/19 11:16:00 EDT, [facility]/pharmacy #[id number], 168, cm, 11/04/19 10:20:00 EDT, Height Start Date: 11/05/19 Status: Ordered traMADol 50 mg oral tablet 1 tablet = 50 mg, By Mouth, Daily, # 30 tablet, 5 Refills, Maintenance, 06/03/20 11:37:00 EST, Tablet, [facility]/pharmacy #[id number], 168, cm, 11/18/19 8:50:00 [...]
--- OUTSIDE RECORDS SUMMARY | 2023-06-05 10:47 | XMS_ITS | Continuity of Care Document ---
Author Name Unknown Organization [facility] Adult Address [address] [place] [address]- Care Team Providers Care Book Jogger Name Role Phone Chris Ballard MD Primary Care Physician [phone] [id number] - 11/11/19 [facility] [address] [place] [address]- [facility] Encounter Diagnosis Esophageal reflux (GERD)(Discharge Diagnosis) - 11/04/19 Prediabetes(Discharge Diagnosis) - 11/04/19 Chronic low back pain(Discharge Diagnosis) - 11/04/19 Rosacea(Discharge Diagnosis) - 11/04/19 Medicare annual wellness visit, subsequent(Discharge Diagnosis) - 11/04/19 Attending Physician: Chris Ballard MD Allergies, Adverse [...] Gm, 3 Refills, Maintenance, 09/25/19 13:05:00 EDT, [place], [facility] #[id number], 2 sprays Nares, Both Daily in AM,x10 days, 168, cm, 10/20/18 11:25:00 EDT, Height Start Date: 09/25/19 Stop Date: 11/04/19 Status: Ordered gabapentin 300 mg oral capsule 1, capsule, By Mouth, 2 times a day, # 60 capsule, Refills 12, Tot. Refills 0, Maintenance, 08/26/19 16:41:00 EST, Route to Pharmacy Electronically, [email or web address] #[id number], 168, cm, 10/20/18 11:25:00 EDT, Height Start Date: 08/26/19 Status: Ordered Multivitamin Tablet 1 tablet, By Mouth, Daily, # 30 tablet, 0 Refills, Maintenance, 09/13/14 7:57:07, Tablet Start Date: 09/13/14 Status: Ordered omeprazole 20 mg oral delayed release tablet 1 tablet = 20 mg, By Mouth, Daily, # 90 tablet, 4 Refills, Maintenance, 11/04/19 10:35:00 EDT, [email or web address] #[id number], 168, cm, 11/04/19 10:20:00 EDT, Height Start Date: 11/04/19 Stop Date: 05/02/20 Status: Ordered rosuvastatin 5 mg oral tablet 1 tablet = 5 mg, By Mouth, Daily, # 90 tablet, 4 Refills, Soft Stop, 11/05/19 11:16:00 EDT, [facility]/pharmacy #[id number], 168, cm, 11/04/19 10:20:00 EDT, Height Start Date: 11/05/19 Status: Ordered traMADol 50 mg oral tablet 1 tablet = 50 mg, By Mouth, 2 times a day, for 30 days, fax [phone] fill on or after 08/08/18, #60 tablet, 5 Refills, Acute 03/07/20 11:13:00 EDT, 09/09/19 11:13:00 EDT, [email or web address] #[id number], 168, cm, 10/20/18 11:25:00 EDT, Height Start [...] Active Hyperlipidemia(Confirmed) Active Prediabetes(Confirmed) Active Rosacea(Confirmed) Active Diagnosis Diagnosis Type Effective Dates Health Status Clinical Service Informant Esophageal reflux (GERD) Discharge Diagnosis 11/04/19 Prediabetes Discharge Diagnosis 11/04/19 Chronic low back pain Discharge Diagnosis 11/04/19 Rosacea Discharge Diagnosis 11/04/19 Medicare annual wellness visit, subsequent Discharge Diagnosis 11/04/19 Vital Signs Most recent to oldest [Reference Range]: 1 Height 168.00 cm (11/04/19 10:20 AM) Weight 72.8 kg (11/04/19 10:20 AM) Oxygen Saturation [94-100 %] 98 % (11/04/19 10:20 AM) Pulse Rate [55-90 bpm] 53 bpm *L* (11/04/19 10:20 AM) Body Mass Index [18.5-24.99] 25.79 *H* (11/04/19 10:20 AM) Blood Pressure [90-138/55-84 mm Hg] 124/ 68mm Hg (11/04/19 10:20 AM) Blood pressure sites Arm, left (11/04/19 10:20 AM) Social History Social History Type Response Smoking Status Former smoker; Type: Cigarettes; Other: Quit at age 22; entered on: 09/15/15 Sex
--- OUTSIDE RECORDS SUMMARY | 2023-06-05 10:48 | XMS_ITS | Continuity of Care Document ---
Author Name Unknown Organization [facility] Address [address] [place] [address]- Care Team Providers Care Motor Vehicle Compliance Analyst Name Role Phone Chris Ballard MD Primary Care Physician [id number] Date(s): 11/18/19 - 11/25/19 [facility] [address] [place] [address] Encounter Diagnosis Chronic low back pain(Discharge Diagnosis) - 11/18/19 Dysphagia(Discharge Diagnosis) - 11/18/19 Attending Physician: Chris Ballard MD Allergies, Adverse Reactions, Alerts Substance Reaction Severity Status NKA Active Immunizations Given and Recorded Vaccine Date Status Refusal Reason zoster vaccine, inactivated 09/30/17 Given tetanus/diphtheria/pertussis, acel(Tdap) 09/20/16 Given influenza virus vaccine, inactivated 09/15/15 Give n influenza virus vaccine, inactivated 05/31/14 Give n tetanus-diphtheria toxoids (Td) 1 08/09/06 Given 1Admin Note: [facility] Medications fluticasone 50 mcg/inh nasal spray 2 sprays, Nares, Both, Daily in AM, # 16 Gm, 3 Refills, Maintenance, 09/25/19 13:05:00 EDT, [place], [facility] #[id number], 2 sprays Nares, Both Daily in AM,x10 days, 168, cm, 10/20/18 11:25:00 EDT, Height Start Date: 09/25/19 Stop Date: 11/04/19 Status: Ordered gabapentin 300 mg oral capsule 1, capsule, By Mouth, 3 times a day, # 60 capsule, Refills 12, Tot. Refills 0, Maintenance, 08/26/19 16:41:00 EST, Route to Pharmacy Electronically, [facility] #[id number], 168, cm, 10/20/18 11:25:00 EDT, Height Start Date: 08/26/19 Status: Ordered Multivitamin Tablet 1 tablet, By Mouth, Daily, # 30 tablet, 0 Refills, Maintenance, 09/13/14 7:57:07, Tablet Start Date: 09/13/14 Status: Ordered omeprazole 20 mg oral delayed release tablet 1 tablet = 20 mg, By Mouth, Daily, # 90 tablet, 4 Refills, Maintenance, 11/04/19 10:35:00 EDT, [facility] #[id number], 168, cm, 11/04/19 10:20:00 EDT, Height Start Date: 11/04/19 Stop Date: 05/02/20 Status: Ordered rosuvastatin 5 mg oral tablet 1 tablet = 5 mg, By Mouth, Daily, # 90 tablet, 4 Refills, Soft Stop, 11/05/19 11:16:00 EDT, [facility]/pharmacy #[id number], 168, cm, 11/04/19 10:20:00 EDT, Height Start Date: 11/05/19 Status: Ordered traMADol 50 mg oral tablet 1 tablet = 50 mg, By Mouth, Daily, 0 Refills, Maintenance, 11/18/19 9:21:00 EDT Start Date: 11/18/19 Status: Ordered Vitamin C Tablet 1 tablet, [...] Diagnosis Diagnosis Type Effective Dates Health Status Cl inical Service Informant Chronic low back pain Discharge Diagnosis 11/18/19 Dysphagia Discharge Diagnosis 11/18/19 Vital Signs Most recent to oldest [Reference Range]: 1 Height 168.00 cm (11/18/19 8:50 AM) Social History Social History Type Response Smoking Status Former smoker; Type: Cigarettes; Other: Quit at age 22; entered on: 09/15/15 Sex
[2023-06-05 11:38] VITALS: BMI 25.9
[2023-06-05 11:52] VITALS: BP 133/75; PULSE 49; RESP 15; TEMP 36.9; O2SAT 98
--- NOTE | 2023-06-05 11:52 | MHC.SHP ---
Pre-Procedural Eval Section A Date of Service: 06/05/23 Section B Chief Complaint: Gastric intestinal metaplasia without dysplasia,po Relevant Family History (Specify if Yes): No Relevant Social History: None Present Medications: see Short Stay Collaborative assessment Medical History: Significant History (high choelsterol ) History of Previous Operations: Relevant previous surgery/procedure and date(s) (Hx of endoscopy History of colonoscopy) Allergies: Allergies Allergy/AdvReac Type Severity Reaction Status Date / Time No Known Allergies Allergy Verified 06/05/23 11:37 Review of Systems Sugical H&P ROS: Negative: Constitution, Cardiovascular, Respiratory, Neurological, Psychiatric, Hem-Onc, Allergic/Immunologic, Gastrointestinal, Genitourinary, Musculoskeletal, Integumentary, Endocrine and Eyes/Ears/Nose/Throat Exam Surgical H&P Exam: Normal: HEENT, Normal: Heart, Normal: Lungs, Normal: Extremities, Normal: Abdomen, Normal: Skin and Normal: Neurological Plan Diagnosis/Plan: Unchanged I have reviewed the history and physical and performed a pertinent physical examination on my patient. No changes have occurred unless specified. Time Spent With Patient Time: Total time managing care of this patient today ____ minutes.
[2023-06-05] MEDS: Lactated Ringers 1,000 ML 100 ML IVCONT (11:56)
--- NOTE | 2023-06-05 12:02 | W.PM.OPN ---
Operative Note Operative Note Date of Service: 06/05/23 Narrative: Operative Information Procedure Description: EGD, Colonoscopy Indication: hx of intestinal metaplasia and colon screening Anesthesia: MAC FLEXIBLE TRANSORAL UPPER GASTROINTESTINAL ENDOSCOPY AND COLONOSCOPY PROCEDURE NOTE UPPER ENDOSCOPY Consent: Indications for the procedure and potential complications of bleeding, perforation, reaction to medications and missed diagnosis were discussed with the patient and informed consent was obtained. Instrument: Olympus GIF H 190 J mid size upper endoscope Monitoring: Vital signs and clinical assessment, continuous EKG monitoring, Pulse oximetry, Carbon Dioxide monitoring and blood pressure monitoring were done throughout the procedure. Procedure: The patient was placed in the left lateral decubitis position and pre-procedure medications were administered and a bite block was placed. The endoscope was inserted into the mouth and advanced under direct vision to the third part of duodenum. A careful inspection was made as the upper endoscope was withdrawn including a retroflexed examination of the proximal stomach; Findings and interventions are described below. Findings: Larynx:normal Esophagus: GE junction at 40 cm, diaphragm hiatus at 40 cm, normal mucosa Stomach: Granular mucosa. Biopsies were obtained from antrum greater, lesser curves, fundus and angularis.. Grade 2 flap valve on retroflexed examination of the cardia. 7-8 mm sessile polyp removed from the antrum. Duodenum: Patchy erythema, bx taken Intervention: Biopsies as noted above COLONOSCOPY Instrument: Olympus variable stiffness pediatric scope 190L Colonoscopy Monitoring: Vital signs and clinical assessment, continuous EKG monitoring, Pulse oximetry, Carbon Dioxide monitoring and blood pressure monitoring were done throughout the procedure. Colon withdrawal time was 13 minutes. Procedure: The patient was placed in the left lateral decubitis position and pre-procedure medications were administered. After a digital rectal examination of the ano-rectum, the video colonoscope was inserted into the rectum and advanced through the colon to the cecum/TI. The colonoscope was slowly withdrawn in a retrograde panoramic fashion and the colon mucosa was carefully examined including a retroflexed view of the rectum. Findings and interventions are described below. Procedure Difficulty:easy Findings: Terminal Ileum-not intubated Cecum:normal Ascending Colon: normal Transverse Colon -normal Descending Colon:normal Sigmoid Colon: normal Rectum: Retroflexion with medium sized internal hemorrhoids, grade I Anorectum - normal Colon preparation: [place] Bowel Preparation Scale Right colon; 3 Transverse colon: 3 Left colon; 3 (0 = Unprepared colon segment with mucosa not seen due to solid stool that cannot be cleared. 1 = Portion of mucosa of the colon segment seen, but other areas of the colon segment not well seen due to staining, residual stool and/or opaque liquid. 2 = Minor amount of residual staining, small fragments of stool and/or opaque liquid, but mucosa of colon segment seen well. 3 = Entire mucosa of colon segment seen well with no residual staining, small fragments of stool or opaque liquid) Impression and Post Procedure Diagnosis: Endoscopy Findings: gastritis gastric polyp Colonoscopy Findings: internal hemorrhoid Plan: Await Pathology results Repeat Colonoscopy in 5-6 years due to hx of polyps or earlier if clinically indicated High fiber diet leaflet avoid straining at stool, epsom salts and sitz bath, anusol supps or cream Repeat EGD pending path Above findings were reviewed with the patient and relevant handouts were provided if indicated.
[2023-06-05 12:40] VITALS: BP 104/42; PULSE 67; RESP 16; TEMP 37.2; O2SAT 100
[2023-06-05 12:55] VITALS: BP 104/42; PULSE 67; RESP 16; TEMP 36.6; O2SAT 100
== END 2023-06-05 13:30 | disposition home or self-care (01) ==
PROVIDERS: PCP Internal Medicine; Visit Provider Internal Medicine Gastroenterology
PROC: (CPT 43239; principal; 2023-06-05 12:50)
DX: K29.70 Gastritis, unspecified, without bleeding (principal); K31.7 Polyp of stomach and duodenum; K29.80 Duodenitis without bleeding; K31.A11 Gastric intestinal metaplasia without dysplasia, involving the antrum; Z12.11 Encounter for screening for malignant neoplasm of colon; K64.0 First degree hemorrhoids; Z86.010 Personal history of colon polyps
CPT/HCPCS: 43239; G0105; 88305; 88342; J2704

== ENCOUNTER → 2023-06-05 10:44 | Outpatient (BNV) | payer MEDICARE, SELFPAY | PROVIDERS: PCP Internal Medicine; Visit Provider Internal Medicine Gastroenterology | DX: Z12.11 Encounter for screening for malignant neoplasm of colon (principal); Z86.010 Personal history of colon polyps; K64.0 First degree hemorrhoids; K31.7 Polyp of stomach and duodenum; K29.70 Gastritis, unspecified, without bleeding | CPT/HCPCS: 43239; G0105 ==

== ENCOUNTER 2023-06-21 09:29 | Outpatient (REF) | payer MEDICARE, SELFPAY ==
[2023-06-21 11:44] LABS: MANUAL DIFF FLAG NO
[2023-06-21 12:03] LABS: Basophils Percent Auto 0.5 % (0-2); Eosinophils Absolute Auto 0.1 X10*3/uL (0.0-0.4); Eosinophils Percent Auto 1.5 % (0-4); Hematocrit 44.1 % (42.0-52.0); Hemoglobin 14.4 g/dl (14.0-18.0); Imm Gran Abs Auto 0.01 X10*3/uL (0.00-0.03); Imm Gran Pct Auto 0.2 % (0.0-0.4); Lymphocytes Absolute Auto 2.2 X10*3/uL (1.2-4.9); Lymphocytes Percent Auto 35.6 % (20-40); Mean Corpuscular HGB Conc 32.7 g/dl (31.0-36.0); Mean Corpuscular Hemoglobin 30.3 pg (27.0-33.0); Mean Corpuscular Volume 92.8 fL (80.0-98.0); Mean Platelet Volume 11.7 fL (9.4-12.4); Monocytes Absolute Auto 0.4 X10*3/uL (0.1-1.2); Monocytes Percent Auto 6.3 % (2-11); Neutrophils Absolute Auto 3.5 x10*3/uL (2.0-8.3); Neutrophils Percent Auto 55.9 % (45-73); Platelet Count 166 X10*3/uL (160-400); Red Blood Count 4.75 X10*6/uL (4.60-5.80); White Blood Count 6.2 X10*3/uL (4.8-10.8)
[2023-06-21 13:41] LABS: Folate > 20.0 ng/mL (> or = 4.0); Vitamin B12 783 pg/mL (200-900)
[2023-06-27 07:39] LABS: Transglutaminase Ab IgG <1.0 U/mL; Transglutaminase IgA <1.0 U/mL
[2023-06-27 07:47] LABS: Gliadin Deamidated IgA Ab <1.0 U/mL; Gliadin Deamidated IgG Ab <1.0 U/mL
[2023-06-27 11:46] LABS: H Pylori Breath Test Negative (Negative)
== END 2023-06-21 09:30 | disposition home or self-care (01) ==
LOC: HO.LAB 09:29
PROVIDERS: PCP Internal Medicine; Visit Provider Internal Medicine Gastroenterology
DX: K31.A11 Gastric intestinal metaplasia without dysplasia, involving the antrum (principal); R10.33 Periumbilical pain; G89.29 Other chronic pain
CPT/HCPCS: 36415; 82607; 82746; 83013; 85025; 86258; 86364; 99212

== ENCOUNTER 2023-06-21 09:29 | Outpatient (AMB) | payer MEDICARE, SELFPAY ==
--- NOTE | 2023-06-21 09:31 | MHC.OFFVIS ---
Intake Vital Signs 06/21/23 09:33 Height 5 ft 6 in Weight 163 lb 2.273 oz BMI 26.3 BP 131/71 Blood Pressure Location Lt brachial Position Sitting Pulse 61 Intake Visit Reasons: S/P Dr. Jeanne sommer Intake Note: Joel presents in the office as a follow up egd and colonoscopy. CC: He states that he is not having any concerns - so far everything is okay! Allergies No Known Allergies Allergy (Verified 06/21/23 09:33) HPI S/P Dr. Jeanne sommer HPI Details 67 yr old m here for f/u RECAP--had seen Dr major, last visit and seen me at [facility] in past ? had been c/o food sticking, not digesting ? specific that the heaviness is in his stomach not his esophagus ? He denied CP, SOB. ? Dr Major had checked FIT- which was neg ? CT 10/2019-- exophytic nodule left kidney, otherwise unremarkable subsequent us kidney was normal with cyst noted, no mass EGD- 12/2019--hyperplastic polyp, chronic active esophagitis, mode inactive inflammation and metaplasia--balloon dilation done to pylorus and esophagus GES_-actually pretty rapid within first 2 hrs, no gastroparesis EGD/colo-06/22- small hemorrhoid,s ---mild inflamamtion, and stomach polyp removed with intestinal metaplasia ? INTERIM: still off PPI, no issues reviewed EGD with duodenitis, and no dysphagia denies nausea or vomiting no dysphagia no diarrhea or constipation EXAM: GENERAL: The patient is well developed and nontoxic. VITAL SIGNS:see workflow HEENT: Nonicteric sclerae, PERRLA, EOMI. Oropharynx clear. Moist mucous membranes. Conjunctivae appear well perfused. No thyroid mass. CHEST: Chest wall is nontender. HEART: Regular rate and rhythm without murmurs. LUNGS: Clear to auscultation bilaterally. ABDOMEN: Soft, positive bowel sounds, nontender, no organomegaly.no flank tenderness SKIN: No rash, no excessive bruising, petechiae, or purpura. NEUROLOGIC: Cranial nerves II-XII intact without motor/sensory deficit. Psych: normal affect Assessment & Plan 1/ intestinal metaplaisa of stomach 2/ hx of colon polyps ? PLAN: 1/ recheck h pylori 2/ celiac panel due to duodenitis - REPLACED BY [facility] Medical History Elevated cholesterol Surgical History Hx of endoscopy History of colonoscopy Family History Father No problems noted. Mother No problems noted. Social History Household Members: Spouse Alcohol intake: current Alcohol intake frequency: 0-2 drinks per day Alcohol type: wine Patient Tobacco Use Status: Former Tobacco user Quit Date: age 22 Physical Exam Vital Signs: Last Vital Signs Pulse 61 06/21/23 09:33 BP 131/71 06/21/23 09:33 BMI result Body Mass Index 26.3 Assessment & Plan Assessment & Plan (1) Intestinal metaplasia of antrum of stomach without dysplasia: Code(s): K31.A11 - Gastric intestinal metaplasia without dysplasia, involving the antrum Plan: Assessment & Plan 1/ intestinal metaplaisa of stomach 2/ hx of colon polyps ? PLAN: 1/ recheck h pylori 2/ celiac panel due to duodenitis - Orders: Orders Transglutaminase Ab IgG Today G89.29 - Other chronic pain, K31.A11 - Gastric intestinal metaplasia without dysplasia, involving the antrum, R10.33 - Periumbilical pain Gliadin Ab Panel Today K31.A11 - Gastric intestinal metaplasia without dysplasia, involving the antrum Complete Blood Count Auto Diff Today K31.A11 - Gastric intestinal metaplasia without dysplasia, involving the antrum Transglutaminase IgA Today K31.A11 - Gastric intestinal metaplasia without dysplasia, involving the antrum Vitamin B12 and Folate Today K31.A11 - Gastric intestinal metaplasia without dysplasia, involving the antrum Coding Level of Care Code Est Pt Level 3 (80529) Diagnoses Intestinal metaplasia of antrum of stomach without dysplasia K31.A11
[2023-06-21 09:33] VITALS: BP 131/71; PULSE 61; BMI 26.3
== END 2023-06-21 11:19 | disposition home or self-care (01) ==
PROVIDERS: PCP Internal Medicine; Visit Provider Internal Medicine Gastroenterology
DX: K31.A11 Gastric intestinal metaplasia without dysplasia, involving the antrum (principal)
CPT/HCPCS: 99213